=== PATIENT | female | born 1995 | race Caucasian/White ===

== ENCOUNTER 2025-01-22 19:56 | Observation (INO) | payer OTHER, SELFPAY ==
[2025-01-22 20:49] LABS: Add Manual Diff / Slide Review NO; Hematocrit 35.9 % (36-46); Hemoglobin 12.4 g/dL (12.0-16.0); Lymphocytes Absolute Auto 1300 /uL (1100-4500); Mean Corpuscular HGB Conc 34.5 % (30-36); Mean Corpuscular Hemoglobin 31.0 PG (26-34); Mean Corpuscular Volume 89.9 fL (80-100); Platelet Count 200 X10^3/uL (150-400)
[2025-01-22 21:00] LABS: Alanine Aminotransferase 19 IU/L (<35); Albumin 3.9 g/dL (3.5-5.0); Albumin Globulin Ratio 1.3 (1.0-2.8); Alkaline Phosphatase 115 U/L (38-126); Blood Urea Nitrogen 8 mg/dL (7-17); Calcium 8.8 mg/dL (8.4-10.2); Carbon Dioxide 21 mmol/L (22-32); Chloride 106 mmol/L (98-107); Estimated Glomerular Filt Rate > 60 mL/min (>60); Globulin 3.1 g/dL (1.7-4.1); Glucose 92 mg/dL (70-99); HEMOLYSIS < 15 (0-50); Potassium 3.7 mmol/L (3.4-5.1); Sodium 132 mmol/L (137-145); Total Protein 7.0 g/dL (6.3-8.2); Uric Acid 4.5 mg/dL (2.5-6.2)
[2025-01-22 21:10] LABS: Protein (Total) Urine Random 10 mg/dL (0-12); Protein Creatinine Ratio Urine 0.24 GRAM/24H
--- NOTE | 2025-01-22 21:46 | P.TNLD_ITS ---
Visit Information Visit Information Date of evaluation: 01/22/25 Reason for Evaluation: Yes non-stress test Comments/Additional reasons for admission: 29YO @ [id number] by reported LMP dating here for evaluation of elevated home BP and reported proteinuria by 24 hour urine protein at [facility]. Has a lot of questions she was not getting answered at [facility] so she decided to come into [facility] and called CNM requesting an evaluation prior to her arrival. No ZAMORA, vision change, RUQ pain or increased edema. Did have 2 episodes of blurred vision 3 days ago, but no recurrence since. Reports otherwise uncomplicated care. No recirds available for review. Here with her supportive Adalid. Vital Signs Vital Signs: BP 123/78, HR 86bpm, T 36.6C Temporal [facility] Medical History (Updated 02/01/25 @ 16:20 by Nathaly Kwok CNM) Depression Social History (Updated 02/01/25 @ 16:19 by Nathaly Kwok CNM) marital status: household members: spouse housing: house education level: master's degree occupational status: employed Review of Systems Review of Systems ROS: Yes All systems reviewed with the patient and are negative except as otherwise documented Exam Vital Signs (past 8 hours): see above Additional BPs: 115/75, 125/84 Presentation: vertex Psych Appearance: grossly normal Mental Status: mental status grossly normal Speech and Movement: speech and movement normal Mood: congruent mood Affect: anxious affect Objective Labs 01/22/25 20:40 01/22/25 20:40 Labs: Laboratory Results - last 24 hr 01/22/25 01/22/25 20:10 20:40 WBC 8.4 RBC 3.99 L Hgb 12.4 Hct 35.9 L MCV 89.9 MCH 31.0 MCHC 34.5 RDW 14.7 Plt Count 200 Neut % (Auto) 73.8 Lymph % (Auto) 15.9 L [place] % (Auto) 8.6 Eos % (Auto) 1.2 L Baso % (Auto) 0.5 Neut # (Auto) 6200 Lymph # (Auto) 1300 [place] # (Auto) 700 Eos # (Auto) 100 Baso # (Auto) 0 Sodium 132 L Potassium 3.7 Chloride 106 Carbon Dioxide 21 L BUN 8 Creatinine 0.48 L Estimated GFR > 60 BUN/Creatinine Ratio 16.7 Glucose 92 Uric Acid 4.5 Calcium 8.8 Total Bilirubin 0.3 AST 25 ALT 19 Alkaline Phosphatase 115 Total Protein 7.0 Albumin 3.9 Globulin 3.1 Albumin/Globulin Ratio 1.3 U Random Total Protein 10 Urine Creatinine 40.19 Protein/Creatinin Ratio 0.24 Evaluation Evaluation Baseline heart rate: 130 Variability: Moderate (6-25) monitor accelerations: Present Monitor Decelerations: Absent Contraction Frequency (minutes): 20 Uterine Contraction Intensity: Mild Category of Tracing: Reactive Comments: CE deferred, not in labor Diagnosis, Plan/Disposition Final Diagnosis (1) Supervision of normal first in third trimester: Status: Acute (2) Proteinuria affecting in third trimester: Status: Acute (3) Normotensive: Status: Acute Plan/Disposition Plan: 2 hours of counseling and questions answered: Care at [facility], preeclampsia, diagnostic criteria and induction of labor (elective vs medical). She was reassured by her normal blood pressures, serum labs and education provided. Plans to transfer care tomorrow and will follow-up in clinic tomorrow. OB Disposition: home
[2025-01-22 22:08] VITALS: BP 125/84; PULSE 85; RESP 16; TEMP 36.6
== END 2025-01-22 22:08 | disposition home or self-care (01) ==
LOC: LABOR 20:05
PROVIDERS: Admitting Provider Nurse Practitioner Obstetrics & Gynecology; PCP Registered Nurse; Referring Provider Nurse Practitioner Obstetrics & Gynecology; Visit Provider Nurse Practitioner Obstetrics & Gynecology
DX: O12.13 Gestational proteinuria, third trimester (principal); Z3A.37 37 weeks gestation of pregnancy
CPT/HCPCS: 36415; 59025; 80053; 84550; 85025; 86900; 86901; G0378; G0379

== ENCOUNTER 2025-02-01 15:59 | Outpatient (CLI) | payer OTHER, SELFPAY ==
--- NOTE | 2025-02-01 16:27 | P.TNLD_ITS ---
Visit Information Visit Information Date of evaluation: 02/01/25 Primary OB Provider: Nathaly Kwok On-call OB Provider: Nathaly Kwok Reason for Evaluation: Yes rupture of membranes Comments/Additional reasons for admission: 29YO @ 38wks 6 days by sure LMP concordant with 12wk US presents for evaluation of suspected ROM. Has been feeling mild, irregular contractions with more mucus discharge, sometimes with spotting, sometimes pink and now riggs. Noticed that her underwear were wet last night and again at 2pm. +FM. [place] [facility] [place] with complictaed by proteinuria. Has elective IOL scheduled for 02/04/25. Vital Signs Vital Signs: BP 111/80, HR 105bpm, T 36.6C Temporal PFSH Medical History (Updated 02/01/25 @ 17:29 by Nathaly Kwok CNM) Depression Social History (Updated 02/01/25 @ 16:19 by Nathaly Kwok CNM) marital status: household members: spouse housing: house education level: master's degree occupational status: employed Review of Systems Review of Systems ROS: Yes All systems reviewed with the patient and are negative except as otherwise documented Exam Vital Signs (past 8 hours): see above Const General: cooperative, healthy appearing and comfortable Nutritional Appearance: average body habitus Presentation: vertex Psych Appearance: grossly normal and well kempt Mental Status: mental status grossly normal Mood: congruent mood Affect: normal affect Evaluation Evaluation Baseline heart rate: 135 Variability: Moderate (6-25) monitor accelerations: Present Monitor Decelerations: Absent Contraction Frequency (minutes): 0 Uterine Contraction Intensity: Mild Category of Tracing: Reactive Cervical dilation (cm): 1.5 Cervical effacement (%): 60 station: -2 Non-invasive Membranes Rupture Test: negative Diagnosis, Plan/Disposition Final Diagnosis (1) Amniotic cavity/membrane problem suspected but not found: Status: Acute Plan/Disposition Plan: Reassurance given for normal vaginal discharge with Amnisure NEGATIVE and low concern for PROM. Reviewed warning sx and when to call. Follow-up in clinic in 2 days, as previously scheduled. OB Disposition: home
== END 2025-02-01 17:05 | disposition home or self-care (01) ==
LOC: OB 02-04 09:43
PROVIDERS: PCP Registered Nurse; Referring Provider Nurse Practitioner Obstetrics & Gynecology; Visit Provider Nurse Practitioner Obstetrics & Gynecology
DX: Z03.71 Encounter for suspected problem with amniotic cavity and membrane ruled out (principal); O47.1 False labor at or after 37 completed weeks of gestation; Z3A.38 38 weeks gestation of pregnancy
CPT/HCPCS: 59025; 84112; G0378; G0379

== ENCOUNTER 2025-02-03 16:09 | Inpatient (IN) | payer OTHER, SELFPAY ==
--- NOTE | 2025-02-03 16:24 | PM.OBHP.1 ---
OB HPI Date/Time Date of admission: 02/03/25 Date Patient Seen: 02/03/25 Time Patient Seen: 16:24 History of Present Condition Chief complaint: induction : 1 Para: 0 Estimated Date of Delivery: 02/09/25 Estimated Gestational Age (weeks): 39.1 Narrative: Radha Vasquez is a 29 year old female GP0 @ 39wks 1 day here for elective IOL. Has been feeling irregular contractions for the last 2 days that have progressively increased in intensity with occasional spotting noted. +FM. No LOF. Transferred into [facility] care @ 37 4/7wks EGA because she was not feeling well supported. Uncompleted prentatal care course with CNMs at [facility]. Has been normotensive, though a preeclampsia panel initiated by reported elevated home BPs on 01/29/25 revealed proteinuria which has persisted. Considering an epidural and is anxious about labor, requesting lots of support and explanations. Planning an epidural. Supported by her , Adalid. Indications Indication for induction OB: maternal discomfort History of Present care: good care, initiated at week # (14), number of visits (9) and pounds weight gain (37) Dating criteria: based on 1st trimester US only Ultrasounds: normal 1st trimester US and normal mid trimester US Obstetrical complications: none Preadmission Labs Blood type: A (+) positive -: Antibody screen: negative, GBS status: negative, HBsAG: negative, HIV: negative and RPR/VDLR: negative -: Chlamydia screen: not detected and Gonorrhea screen: not detected -: Rubella: immune and Varicella: immune HCT: 35.9 HCAB: negative Cell-free DNA: Negative x3 1 hr GTT: 91 Evaluation Evaluation Baseline heart rate: 145 Variability: Moderate (6-25) monitor accelerations: Present Monitor Decelerations: Absent Contraction Frequency (minutes): 6 Uterine Contraction Intensity: Mild Category of Tracing: Reactive Dilation (cm): 2 Effacement (%): 75 Dilation: 1-2 cm Effacement: 60-70% station: -2 Position of cervix: posterior Consistency: soft Carson score: 6 PFSH Medical History (Updated 02/03/25 @ 16:33 by Nathaly Kwok CNM) ADHD Autism spectrum disorder Proteinuria affecting in third trimester Depression Social History (Updated 02/01/25 @ 16:19 by Nathaly Kwok CNM) marital status: household members: spouse housing: house education level: master's degree occupational status: employed Smoking Status: Never smoker Meds Home Medications and Allergies Home Medications ?Medication ?Instructions ?Recorded ?Confirmed ?Type cod liver oil 1 cap PO DAILY 01/22/25 02/03/25 History magnesium citrate (Citrate of 325 ml PO DAILY 01/22/25 02/03/25 History Magnesia oral) magnesium glycinate 120 mg (as 120 mg PO DAILY 01/22/25 02/03/25 History glycinate) capsule omega-3 720 dy-sic-mwu-fish 1 cap PO DAILY 01/22/25 02/03/25 History oil-vit D3 25 mcg capsule vits no.130-ferrous fum 1 tab PO DAILY 01/22/25 02/03/25 History 27 mg iron-folic acid 800 mcg tablet ( Vitamin) psyllium husk 0.52 gram capsule 0.52 g PO DAILY 01/22/25 02/03/25 History (Fiber (psyllium husk)) Allergies Allergy/AdvReac Type Severity Reaction Status Date / Time banana Allergy Intermediate Verified 01/22/25 22:34 cabbage Allergy Intermediate Verified 01/22/25 22:34 casein Allergy Intermediate Gastrointestinal Verified 01/22/25 22:34 Upset pineapple Allergy Intermediate ITCHING Verified 01/22/25 22:34 house dust Allergy Mild Watery Eye Verified 01/22/25 22:34 tree and shrub pollen Allergy Mild Watery Eye Verified 01/22/25 22:34 Review of Systems Review of Systems ROS: Yes All systems reviewed with the patient and are negative except as otherwise documented OB Exam Vital signs Blood Pressure: 121/77 Pulse Rate: 114 Temperature: 96.1 F Resp Effort & Inspection: normal respiratory effort and able to speak in complete sentences Auscultation: clear to auscultation bilaterally Cardio Rate: regular rate Rhythm: regular rhythm Heart Sounds: S1 normal and S2 normal Presentation: vertex Objective Labs 02/03/25 16:41 Assessment and Plan Assessment and Plan Assessment and Plan narrative: A: Term nullipara elective IOL No indication for GBS prophylaxis Reactive FHR P: Admit, routine labor orders. Informed consent obtained for IOL starting with a Jin balloon. Jin balloon placed manually and inflated with 60mL NS. Patient tolerated this well and immediately started feeling stronger contractions. Encouraged balanced rest and upright movement overnight. Encouraged hydrotherapy or NO2 until Jin balloon comes out, though patient may have epidural when requested. Reassess in am. Time-Based Coding :: [TOTAL MINUTES] spent with patient and on the chart (including review of chart, obtaining history, exam, reviewing outside data, placing orders, documenting exam and treatment plan, and counseling patient) on [DATE].
[2025-02-03 16:34] VITALS: BP 121/77; PULSE 114; TEMP 35.6
[2025-02-03] MEDS: ACETAMINOPHEN 325 MG TABLET 975 MG PO (17:37)
[2025-02-03 17:56] LABS: Add Manual Diff / Slide Review NO; Hematocrit 38.2 % (36-46); Hemoglobin 13.0 g/dL (12.0-16.0); Lymphocytes Absolute Auto 1300 /uL (1100-4500); Mean Corpuscular HGB Conc 34.2 % (30-36); Mean Corpuscular Hemoglobin 30.6 PG (26-34); Mean Corpuscular Volume 89.5 fL (80-100); Platelet Count 216 X10^3/uL (150-400)
[2025-02-03 18:23] VITALS: BP 121/77
[2025-02-03] MEDS: fentaNYL 100 MCG/2 ML INJ IV ×2 (20:45→22:15)
[2025-02-03] MEDS: LACTATED RINGERS 1,000 ML 999 ML IV (23:02)
[2025-02-04] MEDS: LACTATED RINGERS 1,000 ML 999 ML IV (00:02)
[2025-02-04] MEDS: ONDANSETRON 4 MG/2 ML INJ IV ×2 (00:25→11:18)
[2025-02-04] MEDS: FENT 2MCG/ML BUPIV 0.125% EPI 200 MCG/100 ML PLAST..BAG 10 MCG EPIDURAL ×2 (00:26→06:49)
--- NOTE | 2025-02-04 00:40 | PM.AN.REGBLK ---
Regional Block Pre-procedure Procedure: Continuous Lumbar Epidural for L&D (with DPE) PMH/ROS narrative: 29yr old with H/O ASD, ADHD and depression ASA Class: II Labs: Hct 38.2 % (36-46) 02/03/25 16:41 Plt Count 216 X10^3/uL (150-400) 02/03/25 16:41 Medications: Current Medications Generic Name Dose Route Start Last Admin Trade Name Freq PRN Reason Stop Dose Admin Acetaminophen 975 mg 02/03/25 17:20 02/03/25 17:37 Acetaminophen 325 Mg Tablet PO 975 mg Q8H PRN Administration Pain, Mild (1-3) Calcium Carbonate 1,000 mg 02/03/25 16:19 Calcium Carbonate 500 Mg Tab PO Q2HR PRN Dyspepsia Carboprost Tromethamine 250 mcg 02/03/25 16:19 Carboprost 250 Mcg/Ml Ampul IM Q90M PRN Bleeding Fentanyl 100 mcg 02/03/25 16:19 02/03/25 22:15 Fentanyl 100 Mcg/2 Ml Inj IV 100 mcg Q1H PRN Administration Pain, Severe (7-10) Oxytocin/Lactated Ringer's 30 unit in 500 mls @ 200 mls/hr 02/03/25 16:19 Oxytocin Premix IV CONT PRN Bleeding Protocol Tranexamic Acid 1,000 mg/ 100 mls @ 600 mls/hr 02/03/25 16:19 Sodium Chloride IV NOW PRN Bleeding Oxytocin/Lactated Ringer's 30 unit in 500 mls @ 2 mls/hr 02/03/25 16:30 Oxytocin Premix IV TITRATE PRIYANK Protocol 2 MILLIUNIT/MIN Lactated Ringer's 1,000 mls @ 100 mls/hr 02/03/25 16:30 Lactated Ringers IV 02/04/25 02:29 CONT PRIYANK Lidocaine HCl 20 ml 02/03/25 16:19 Lidocaine 1% 20 Ml INJ INTRA-OP PRN Post Delivery Methylergonovine Maleate 0.2 mg 02/03/25 16:19 Methylergonovine 0.2 Mg Tablet PO Q6HR PRN Heavy Bleeding Methylergonovine Maleate 0.2 mg 02/03/25 16:19 Methylergonovine 0.2 Mg/Ml Vial IM NOW PRN Bleeding Mineral Oil 30 ml 02/03/25 16:19 Mineral Oil 30 Ml Udc TOP PRN PRN Version Misoprostol 800 mcg 02/03/25 16:19 Misoprostol 200 Mcg Tablet TN NOW PRN Bleeding Misoprostol 400 mcg 02/03/25 16:19 Misoprostol 200 Mcg Tablet SL NOW PRN Bleeding Naloxone HCl 0.2 mg 02/03/25 16:19 Naloxone 0.4 Mg/Ml Vial IV Q2MIN PRN Opiate Reversal Ondansetron HCl 4 mg 02/03/25 16:19 02/04/25 00:25 Ondansetron 4 Mg/2 Ml Inj IV 4 mg Q4HR PRN Administration Nausea And Vomiting Oxytocin 10 unit 02/03/25 16:19 Oxytocin 10 Unit/Ml Vial IM NOW PRN Bleeding Allergies: Allergies Allergy/AdvReac Type Severity Reaction Status Date / Time banana Allergy Intermediate Verified 01/22/25 22:34 cabbage Allergy Intermediate Verified 01/22/25 22:34 casein Allergy Intermediate Gastrointestinal Verified 01/22/25 22:34 Upset pineapple Allergy Intermediate ITCHING Verified 01/22/25 22:34 house dust Allergy Mild Watery Eye Verified 01/22/25 22:34 tree and shrub pollen Allergy Mild Watery Eye Verified 01/22/25 22:34 Procedure Insertion date: 02/04/25 Insertion time: 00:07 Prep/Local: 1% lidocaine (chloroprep) Interspace: L3-4 Patient position: sitting Needle: 18 gauge Tree Loss of resistance with: saline EREN at (cm): 7 Catheter placed at SKIN (cm): 12 Catheter in SPACE (cm): 5 Insertion: No CSF, No Blood, No Paresthesia with insertion, No Paresthesia with injection and No Test dose reaction Initial Medications TEST DOSE time: 00:09 TEST DOSE: 1.5% lidocaine with epinephrine 1:200k (mL): 3 BOLUS DOSE time: 00:12 BOLUS DOSE (mL): 2 BOLUS DOSE med: other (Remaining test dose) Infusion INFUSION: 0.125% bupivacaine and with fentanyl 2 mcg/mL Initial rate (mL/hr): 10 Subsequent interventions: Bolus of infusate at 0016 Post-procedure Anesthesia date START: 02/03/25 Anesthesia time START: 23:42 Anesthesia date END: 02/04/25 Anesthesia time END: 07:50 Post-procedure Anesthesia Assessment: Yes CV function: HR/BP stable, Yes Resp function: RR/sat/airway adequate, Yes Post-op hydration adequate, Yes Pain control adequate, Yes Nausea & vomiting absent, Yes Temperature > 36 C and Yes Mental status appropriate
[2025-02-04] MEDS: CALCIUM CARBONATE 500 MG TAB 1000 MG PO (03:56)
[2025-02-04] MEDS: diphenhydrAMINE 50 MG/ML VIAL 25 MG IV (03:56)
[2025-02-04] MEDS: NALBUPHINE 20 MG/ML AMPUL 5 MG IV (05:36)
[2025-02-04] MEDS: LACTATED RINGERS 1,000 ML 100 ML IV (06:49)
[2025-02-04] MEDS: OXYTOCIN PREMIX 30 UNIT/500 ML PLAST..BAG 200 UNIT IV (07:52)
[2025-02-04] MEDS: TRANEXAMIC ACID 1,000 MG in SODIUM CHLORIDE 0.9% 100 ML 600 MG IV (07:57)
[2025-02-04] MEDS: METHYLERGONOVINE 0.2 MG/ML VIAL IM (08:09)
--- NOTE | 2025-02-04 08:38 | PM.OBPRVD ---
Events: Labor Induction Labor & Delivery Delivery date: 02/04/25 Delivery Time: 07:50 Intrapartal Events: None Cervical ripening method: per Jin bulb protocol Induction method: none Delivery monitor: external FHT and external uterine Route of delivery: L&D Laceration Description: Perineal - 2nd Degree Delivery repair: chromic (3.0) Quantitative Blood Loss: 1,150 Anesthesia Type: Epidural Narrative: Elective IOL with Jin balloon progressed to active labor with Jin balloon out and then epidural at 2245 last night. Patient continued to labor without augmentation overnight with Cat I FHR. Pushing was initiated at 0719 after CE at 0703 was C/C/0. SROM occurred with initation of pushing. Cat II FHR during second stage for some variable decelerations. Strong maternal pushing efforts over a 31 minute second stage led to NSVB of a vigorous baby boy in CARIDAD position. [place] delivered through a single tight nuchal cord and the shoulders delivered easily with the same push as the head. [place] was lifted to maternal abdomen by FOB. 30 units of pitocin in 500mL LR was started at 300mL/hr for AMTSL. Brisk bleeding was noted and pitocin was increased to a bolus. After cessation of pulsation, the cord was double clamped by CNM and cut by FOB. Cord blood hold sample was collected. Cord traction and maternal push led to spontaneous, Schultze delivery of an apparently intatc placenta, membranes and 3VC. Heavy vaginal bleeding with a firm fundus @ U was noted and TXA was administered. Bleeding slowed to moderate so methergine 0.2mg IM and misoprostol 400mcg SL were given. Inspection revealed a 2nd degree perineal laceration which was repaired with 3.0 chromic in the usual fashion under adequate epidural anesthesia. Fundus Firm and bleeding scant after repair. QBL 1150mL. Both mother and baby stable and skin to skin as I left the room. [place] Baby 1: Infant gender: Male Presentation: vertex Position: Right Occiput Anterior Placenta delivery description: Spontaneous Cord Vessel Description: 3 Vessels, Nuchal Cord and Tight score (1 min): 9 score (5 min): 9 weight: 3.383 kg Plan for aftercare: Routine care (w/ CBC in 10 hours)
[2025-02-04] MEDS: KETOROLAC 30 MG/ML VIAL IV (09:28)
[2025-02-04] MEDS: DERMOPLAST SPRAY 20% 60 ML 1 SPRAY TOP (09:37)
[2025-02-04 12:13] LABS: Add Manual Diff / Slide Review NO; Hematocrit 35.1 % (36-46); Hemoglobin 11.9 g/dL (12.0-16.0); Lymphocytes Absolute Auto 1000 /uL (1100-4500); Mean Corpuscular HGB Conc 34.0 % (30-36); Mean Corpuscular Hemoglobin 30.3 PG (26-34); Mean Corpuscular Volume 89.1 fL (80-100); Platelet Count 198 X10^3/uL (150-400)
[2025-02-04] MEDS: ACETAMINOPHEN 325 MG TABLET 650 MG PO ×2 (12:27→19:04)
[2025-02-04 16:50] LABS: Add Manual Diff / Slide Review NO; Hematocrit 35.6 % (36-46); Hemoglobin 12.1 g/dL (12.0-16.0); Lymphocytes Absolute Auto 1100 /uL (1100-4500); Mean Corpuscular HGB Conc 34.1 % (30-36); Mean Corpuscular Hemoglobin 30.3 PG (26-34); Mean Corpuscular Volume 88.8 fL (80-100); Platelet Count 206 X10^3/uL (150-400)
[2025-02-04] MEDS: HC/PRAMOXINE 10GM FOAM 1 APPLIC PR (18:18)
[2025-02-04] MEDS: IBUPROFEN 600 MG TABLET PO (19:03)
[2025-02-05] MEDS: ACETAMINOPHEN 325 MG TABLET 650 MG PO ×2 (02:19→08:39)
[2025-02-05] MEDS: IBUPROFEN 600 MG TABLET PO ×2 (02:20→08:38)
[2025-02-05] MEDS: DOCUSATE 100 MG CAPSULE PO (08:39)
--- NOTE | 2025-02-05 08:42 | PM.OBDS.1 ---
Discharge Providers Provider Date of admission: 02/03/25 16:09 Discharge Date: 02/05/25 Primary care physician: Aguilar Cardozo ND Consults: 02/03/25 16:19 Consult to Anesthesiology Urgent Comment: Consulting Provider: Anesthesiologist Reason for consultation: Epidural Has provider been notified: No 02/04/25 09:22 Consult to Joggle Press Operator Routine Comment: Discharge provider: Nathaly Kwok CNM Summary Hospital Course Date Patient Seen: 02/05/25 Time Patient Seen: 08:42 Diagnoses: NSVB, PPH, hemorrhoids Hospital Course: Elective IOl with baez balloon only and epidural for anesthesia resulted in NSVB with 2nd degree perineal laceration and a PPH of 1150mL (resolved with pitocin, TXA, methergine and Cytotec). PPD1: Voiding, ambulating and independently. Tolerating a general diet. Cramping and vaginal pain is well controlled with PO medication. Hemorrhoids are her biggest complaint, using Proctofoam and oral pain meds. Vaginal bleeding is light to moderate. Remarkably stable Hgb/Hct and no physical sx of hypovolemia s/p PPH. Peripartum Data Infant Delivery Method: Natural Vaginal Laceration Description: Perineal - 2nd Degree complications: none [place] 1: Gender: Male Disposition of : home Discharge Diagnosis (1) Del w/ 2 deg lac-unsp: Status: Acute (2) hemorrhage, delivered, current hospitalization: Status: Acute (3) Hemorrhoids during puerperium: Status: Acute Status at Discharge Cognitive/behavioral status at discharge: oriented and calm Functional status at discharge: independent ambulation Overall status at discharge: patient is progressing back to baseline Time Spent with Patient Time attestation: Total time spent providing and/or coordinating discharge services: Time spent: Greater than 30 minutes Objective Labs 02/04/25 16:40 Labs: Laboratory Results - last 24 hr 02/04/25 02/04/25 12:05 16:40 WBC 17.7 H D 17.9 H RBC 3.94 L 4.00 Hgb 11.9 L 12.1 Hct 35.1 L 35.6 L MCV 89.1 88.8 MCH 30.3 30.3 MCHC 34.0 34.1 RDW 14.5 14.4 Plt Count 198 206 Neut % (Auto) 86.8 H 82.3 H Lymph % (Auto) 5.9 L 6.4 L [place] % (Auto) 6.9 10.9 Eos % (Auto) 0.1 L 0.2 L Baso % (Auto) 0.3 0.2 Neut # (Auto) 06540 H 68256 H Lymph # (Auto) 1000 L 1100 [place] # (Auto) 1200 H 2000 H Eos # (Auto) 0 0 Baso # (Auto) 0 0 Exam Other: Fundus firm @ U-1, lochia light, no clots. Perineum well approximated. Discharge Plan Discharge Plan Patient Disposition: Home Discharge orders & Medications Prescriptions: New oxycodone 5 mg Tablet 5 mg PO Q4H PRN (Reason: Pain, Moderate (4-6)) 7 Days Qty: 12 0RF ibuprofen 600 mg Tablet 600 mg PO Q6H 14 Days Qty: 56 0RF A.E.R. Witch Avis 12.5-50 % Pads, Medicated 2 pad topical Q30M PRN (Reason: Itching) 7 Days Qty: 250 3RF docusate sodium 100 mg Capsule 100 mg PO DAILY 14 Days Qty: 14 0RF Proctofoam HC 1-1 % Foam 1 applic MS TID PRN (Reason: Hemorrhoids) 7 Days Qty: 3 1RF Continued [id number]-fish oil-vit D3 720 mg- 25 mcg capsule 1 cap PO DAILY cod liver oil Capsule 1 cap PO DAILY magnesium citrate [Citrate of Magnesia] Solution 325 ml PO DAILY magnesium glycinate 120 mg capsule 120 mg PO DAILY Vitamin 27 mg iron- 800 mcg tablet 1 tab PO DAILY psyllium husk [Fiber (psyllium husk)] 0.52 gram capsule 0.52 g PO DAILY Follow up/Referrals: Aguilar Cardozo ARNP [Primary Care Provider, Naturopathy] Nathaly Kwok CNM [Advanced Front Sight Attacher, RECONCILEMENT CLERK] Referral Note: 02/09/2025 @ 12:15pm- follow-up in office 02/15/2025 @ 10:00am- 2 week in office (may switch to phone call if desired) 03/18/2025 @ 10:30am- 6 week in office Diet/Activity/Treatments Diet: Regular Activity: bed rest x 2 week, Visit Report/Discharge Packet Stand Alone Forms: Patient Portal/API, Stroke Signs & Symptoms Discharge Data Primary Care Provider: Aguilar Cardozo
== END 2025-02-05 12:55 | disposition home or self-care (01) | DRG 806 ==
PROVIDERS: Admitting Provider Nurse Practitioner Obstetrics & Gynecology; PCP Registered Nurse; Referring Provider Nurse Practitioner Obstetrics & Gynecology; Visit Provider Nurse Practitioner Obstetrics & Gynecology
DX: O70.1 Second degree perineal laceration during delivery (principal); O72.0 Third-stage hemorrhage; Z37.0 Single live birth; O87.2 Hemorrhoids in the puerperium; Z3A.39 39 weeks gestation of pregnancy; O76 Abnormality in fetal heart rate and rhythm complicating labor and delivery
CPT/HCPCS: 36415; 59025; 59050; 84112; 85025; 86850; 86900; 86901; G0379; J1200; J1885; J2210; J2300; J2405; J2590; J3010; J7050; J7120; S0191